=== PATIENT | female | born 1950 | race Caucasian/White ===

== ENCOUNTER 2017-03-10 19:46 | Emergency (ER) | payer OTHER ==
[~2017-03-10] VITALS: Ht 162.6 cm; Wt 81.1 kg
[2017-03-10 19:49] VITALS: Ht 162.6 cm; Wt 81.1 kg
[2017-03-10] MEDS ORDERED: CYAN100T PO (20:25)
[2017-03-10] MEDS ORDERED: OMEGCAP2 PO (20:25)
[2017-03-10] MEDS ORDERED: CLX20 PO (20:25)
[2017-03-10] MEDS ORDERED: OXYC-609 PO (20:25)
[2017-03-10] MEDS ORDERED: LENA2.5C PO (20:25)
[2017-03-10] MEDS ORDERED: ERGO500037 PO (20:25)
[2017-03-10] MEDS ORDERED: RIVA1TAB4 PO (20:25)
[2017-03-10] MEDS ORDERED: EZET10TA63 PO (20:25)
[2017-03-10] MEDS ORDERED: CYCL1CAP19 PO (20:25)
--- NOTE | 2017-03-10 20:29 | EMERGENCY ROOM VISIT NOTE ---
History Report prepared by Sangita: Alex Quiñones Under the Supervision of: Dr. Robby Miller M.D. First contact with patient: 20:17 Chief Complaint: FALL Stated Complaint: FELL AT EASTER,NAUSEA,PAIN,LUMP ON HEAD History of Present Illness The patient is a 66 year old female who presents to the Emergency Room with complaints of persistent pain secondary to a fall that occurred just under a month ago, on Easter. The patient was walking down the stairs when she slipped and fell onto her left side. She complains of abdominal, left shoulder, left arm , left elbow, left leg, and neck pain. She also notes a lump on her head that hurts to touch, persistent headaches, light headedness, and nausea. The patient rates her overall discomfort a 7/10 in intensity. She states that she has not previously been evaluated by a healthcare professional for this fall. The patient takes Xarelto regularly as prescribed secondary to atrial fibrillation. She has also been taking oxycodone for pain. The patient has a history of multiple myeloma for which she is treated at [facility]. She states that the pain she is experiencing today is unlike pain she has experienced in the past related to this cancer. Source of History: patient Onset: Just under a month ago Position: shoulder (left), arm (left), elbow (left), abdomen, leg (left) Symptom Intensity: 7/10 Timing: other (Persistent ) Associated Symptoms: + headache, + nausea Review of Systems All systems have been listed, reviewed, and are negative other than those previously mentioned. Please see Additional Medical History Sheet. Past Medical & Surgical Medical Problems: (1) Atrial fibrillation (2) Multiple myeloma Family History Unknown family medical history Social History Smoking Status: Never Smoker Smokeless Tobacco Use: No Drug Use: none Occupation Status: retired Current/Historical Medications Scheduled Citalopram (Citalopram Hydrobromide), 20 MG PO QPM Cyanocobalamin (Vitamin B-12), 100 MCG PO DAILY Cyclophosphamide (Cyclophosphamide), 6 TABS PO WK Ergocalciferol (Vitamin D 25739 Unit), 50,000 UNIT PO WK Ezetimibe (Zetia), 10 MG PO DAILY Lenalidomide (Revlimid), 2.5 MG PO QAM [place]-3 Fatty Acids (Fish Oil), 4 CAP PO DAILY Rivaroxaban (Xarelto), 20 MG PO DAILY Scheduled PRN Oxycodone HCl (Oxycodone HCl), 5 MG PO Q6 PRN for Pain Allergies Coded Allergies: No Known Allergies (Unverified , 03/10/17) Physical Exam Vital Signs Date Time Temp Pulse Resp B/P Pulse Ox O2 Delivery O2 Flow Rate FiO2 03/10/17 22:37 36.3 60 16 150/84 97 03/10/17 19:49 36.3 60 16 150/84 97 Room Air Physical Exam GENERAL: Patient appears to be in mild to moderate distress. SKIN: Plaques of psoriasis in multiple areas. HEENT: No hemotympanum, schafer sign, or raccoon signs. Small hematoma to left parietooccipital area. Pupils equal, reactive to light and accommodation. Oral cavity and posterior pharynx appear normal. Neck: Without adenopathy, no neck vein distention. LUNGS: Clear to auscultation. No wheezes, no rales, no rhonchi. HEART: No murmurs. No gallops. No rubs ABDOMEN: No masses, no rebound, no hepatomegaly or splenomegaly. EXTREMITIES: Some tenderness in left shoulder and left elbow, full ROM of shoulder and elbow. Pain in bilateral legs, full ROM. Tenderness along cervical spine, no step off. NEUROLOGIC: Cranial nerves II-XII within normal limits. No gross motor sensory function deficits. Medical Decision & Procedures ER Provider Diagnostic Interpretation: CT results are interpretations by the radiologist and per my review. HEAD CT NONCONTRAST CT DOSE: 1117.25 mGy.cm HISTORY: Trauma fell Easter on Xarelto TECHNIQUE: Multiaxial CT images of the head were performed without the use of intravenous contrast. Comparison: None. Findings: The paranasal sinuses and mastoid air cells are clear. The calvarium and skull base are intact. The ventricles and sulci are within normal limits. There is no mass, hematoma, midline shift, or acute infarct. Impression: No acute intracranial abnormality. Electronically signed by: Seun Borrero M.D. 03/10/2017 8:51 PM Dictated Date/Time: 03/10/2017 8:[address] DOSE: HISTORY: Trauma fell Easter on Xarelto TECHNIQUE: Multiaxial CT images of the cervical spine were performed and reformatted in the sagittal and coronal plane without the use of contrast. COMPARISON: None. FINDINGS: No fractures. No subluxation. Prevertebral soft tissues and the C1-C2 interval are intact. No pneumothorax. IMPRESSION: No fractures within the cervical spine. Moderate degenerative change Electronically signed by: Seun Borrero M.D. 03/10/2017 8:52 PM Dictated Date/Time: 03/10/2017 8:51 PM Laboratory Results 03/10/17 21:10 03/10/17 21:10 Test 03/10/17 21:10 Red Blood Count 4.13 M/uL (4.2-5.4) Mean Corpuscular Volume 103.4 fL (80-100) Mean Corpuscular Hemoglobin 34.6 pg (25-34) Mean Corpuscular Hemoglobin Concent 33.5 g/dl (32-36) RDW Standard Deviation 50.4 fL (36.4-46.3) RDW Coefficient of Variation 13.4 % (11.5-14.5) Mean Platelet Volume 9.4 fL (7.4-10.4) Platelet Estimate DECREASED Anion Gap 6.0 mmol/L (3-11) Est Creatinine Clear Calc Drug Dose 67.1 ml/min Estimated GFR () 82.8 Estimated GFR (Non- 71.4 BUN/Creatinine Ratio 17.6 (10-20) Calcium Level 9.4 mg/dl (8.5-10.1) Troponin I < 0.015 ng/ml (0-0.045) Laboratory results as stated above per my review. Medications Administered Medications (Trade) Dose Ordered Sig/Lupis Route Start Time Stop Time Status Last Admin Dose Admin Acetaminophen/ Hydrocodone Bitart ([place] 5/325mg Home Pack) 1 homepack UD ONCE PO 03/10/17 22:30 03/10/17 22:31 DC 03/10/17 22:36 1 HOMEPACK ECG Indication: other (Hx A-fib ) Rate (beats per minute): 44 Rhythm: sinus bradycardia Findings: 1st degree AV block ED Course 2017: Past medical records reviewed. The patient was evaluated in room B8. A complete history and physical examination was performed. 2229: Ordered Acetaminophen/Hydrocodone Bitart 1 homepack PO. 2216: Upon reevaluation, the patient appeared to have improvement of her symptoms. I discussed today's findings with the patient. She verbalized agreement of the treatment plan. She was discharged home. Medical Decision Nurses notes reviewed. Medical history sheet reviewed. Differential diagnosis includes but is not limited to: Closed head injury, cervical spine injury, multiple contusions, history of multiple myeloma. Patient complains of pain in multiple areas including her head, neck, arms and legs. She has underlying history of multiple myeloma. The patient fell 3-4 weeks ago. The patient is currently on Xarelto. The patient had no loss of consciousness. She did have some nausea. CT of her head and neck were obtained. No significant pathology was seen. Please see above. Labs were also evaluated. Her white count is slightly low along with her platelet count. EKG revealed a bradycardia with a rate of 44. The patient was given hydrocodone here. She will begin a prescription for the same. The patient is to follow-up with her oncologist. Impression Primary Impression: Fall Additional Impressions: Contusion of multiple sites Multiple myeloma Scribe Attestation The scribe's documentation has been prepared under my direction and personally reviewed by me in its entirety. I confirm that the note above accurately reflects all work, treatment, procedures, and medical decision making performed by me. Departure Information Dispostion Home / Self-Care Referrals Yovana Davis M.D. (PCP) Forms HOME CARE DOCUMENTATION FORM, IMPORTANT VISIT INFORMATION Patient Instructions My [facility] Additional Instructions 1-2 hydrocodone every 4 hours as needed for moderate to severe pain. Do not drive or operate machinery while taking hydrocodone. Follow-up with your oncologist as scheduled. Problem Qualifiers
--- NOTE | 2017-03-10 20:52 | DIAGNOSTIC IMAGING REPORT ---
HEAD CT NONCONTRAST CT DOSE: 1117.25 mGy.cm HISTORY: Trauma fell Easter on Xarelto TECHNIQUE: Multiaxial CT images of the head were performed without the use of intravenous contrast. Comparison: None. Findings: The paranasal sinuses and mastoid air cells are clear. The calvarium and skull base are intact. The ventricles and sulci are within normal limits. There is no mass, hematoma, midline shift, or acute infarct. Impression: No acute intracranial abnormality. Electronically signed by: Seun Borrero M.D. 03/10/2017 8:51 PM Dictated Date/Time: 03/10/2017 8:50 PM
--- NOTE | 2017-03-10 20:54 | DIAGNOSTIC IMAGING REPORT ---
CERVICAL SPINE CT CT DOSE: HISTORY: Trauma fell Easter on Xarelto TECHNIQUE: Multiaxial CT images of the cervical spine were performed and reformatted in the sagittal and coronal plane without the use of contrast. COMPARISON: None. FINDINGS: No fractures. No subluxation. Prevertebral soft tissues and the C1-C2 interval are intact. No pneumothorax. IMPRESSION: No fractures within the cervical spine. Moderate degenerative change Electronically signed by: Seun Borrero M.D. 03/10/2017 8:52 PM Dictated Date/Time: 03/10/2017 8:51 PM
[2017-03-10 21:41] LABS: BLOOD UREA NITROGEN 15 mg/dl (7-18); BUN/CREATININE RATIO 17.6 (10-20); CARBON DIOXIDE 30 mmol/L (21-32); CHLORIDE 107 mmol/L (98-107); CREATININE 0.85 mg/dl (0.60-1.20); GLUCOSE 100 mg/dl (70-99); POTASSIUM 3.8 mmol/L (3.5-5.1); SODIUM 143 mmol/L (136-145)
[2017-03-10 21:51] LABS: CALCIUM 9.4 mg/dl (8.5-10.1)
[2017-03-10 21:52] LABS: HEMATOCRIT 42.7 % (37-47); MEAN CELL VOLUME 103.4 fL (80-100); MEAN CORPUSCULAR HEMOGLOBIN 34.6 pg (25-34); MEAN CORPUSCULAR HGB CONC 33.5 g/dl (32-36); MEAN PLATELET VOLUME 9.4 fL (7.4-10.4); PLATELET COUNT 96 K/uL (130-400); PLT ESTIMATE DECREASED; RED BLOOD COUNT 4.13 M/uL (4.2-5.4); WHITE BLOOD COUNT 2.48 K/uL (4.8-10.8)
[2017-03-10] MEDS ORDERED: NORCO 5/325MG HOME PACK PO ONE (22:30)
[2017-03-10 22:37] VITALS: BP 150/84; PULSE 60; TEMP 36.3; O2SAT 97
== END 2017-03-10 22:38 | disposition home or self-care (01) ==
LOC: C.EDB 19:47
DX: S00.83XA Contusion of other part of head, initial encounter (principal); M25.512 Pain in left shoulder; M25.522 Pain in left elbow; M79.604 Pain in right leg; M79.605 Pain in left leg; W10.8XXA Fall (on) (from) other stairs and steps, initial encounter; C90.00 Multiple myeloma not having achieved remission; I48.91 Unspecified atrial fibrillation; I44.0 Atrioventricular block, first degree; Z79.899 Other long term (current) drug therapy